=== PATIENT | male | born 1960 | race Caucasian/White ===

== ENCOUNTER → 2021-02-28 | Day surgery (SDC) | payer BC ==
[~2021-02-28] VITALS: Ht 185.4 cm; Wt 105.5 kg
[~2021-02-28] MED LIST: CELEXA 10 MG TA10 M1 PO; CELEXA 10 MG TA10 MG; CINNAMON500 MG PO; COCONUT OIL1000 MG PO; FAMOTIDINE20 MG PO; FISH OIL 1,0001 EAC9 PO; HYDROCODON-ACE1 EAC7 PO; KRILL OIL500 MG PO; LEXAPRO 10 MG T10 M2 PO; METOPROLOL SUCC50 MG PO; SINGULAIR 10 MG10 M1 PO; TURMERIC500 M2 PO; VITAMIN D350 MC3 PO; ZINC50 M2 PO
[2021-02-28 11:15] VITALS: BP 127/77
[2021-02-28 15:12] VITALS: BP 127/77
--- NOTE | 2021-03-03 07:31 | EKG ---
[place] [address] [facility] [place] [address] ELECTROCARDIOGRAM REPORT Name: NISHANTLALO Rashida Room #: REG [facility]#: [id number] Admission: 02/28/21 Attend Phys: John Sharp MD Discharge: Date of : 58 Report #: [id number] [facility] Test Date: 2021-02-28 Test Time: 11:46:58 Pat Name: LALO DILLARD Department: Room: Gender: M Professional Nurse: JAQUI : 1960 Requested By: Kamla Porras Order Number: [id number] MD: Dung Duncan Measurements Intervals [place] Rate: 66 P: 13 [place]: 193 QRS: -17 QRSD: 104 T: 20 QT: 452 QTc: 474 Interpretive Statements Sinus rhythm Borderline left axis deviation Compared to ECG 12/30/2011 17:55:03 Left ventricular hypertrophy no longer present T-wave abnormality no longer present Possible ischemia no longer present Electronically Signed On 03-03-2021 7:31:37 GASTROENTEROLOGY PHYSICIAN by Dung Duncan [email or web address] <ELECTRONICALLY SIGNED> By: Dung Duncan MD, [facility] 03/03/21 0731 [id number] [id number] Dung Duncan MD, FACC /EPI
--- NOTE | 2021-03-05 08:19 | O ---
[facility] [place] [address] OPERATIVE REPORT Name: LALO DILLARD Room #: REG [facility]#: [id number] Admission: 02/28/21 Attend Phys: John Sharp MD Discharge: Date of : 58 Report #: [id number] THIS REPORT FOR: cc: Jeremy Matthews MD, Steven E. MD Franey, Thomas A. MD ~ cc: Jeremy Matthews MD DATE OF SERVICE: 02/28/[address] Jeremy Matthews. PREOPERATIVE DIAGNOSIS: Right inguinal hernia. POSTOPERATIVE DIAGNOSIS: Right inguinal hernia. PROCEDURE: Right inguinal hernia repair with Prolene hernia system mesh. SURGEON: John Sharp MD ANESTHESIA: Local IV sedation. DESCRIPTION OF PROCEDURE: The patient was brought to the operating room and placed on the operating table in the supine position. Sequential compression devices were in place for DVT prophylaxis. There was no indication for preoperative antibiotics. The patient underwent IV sedation and the right inguinal area was then prepped and draped in a sterile fashion. Skin and subcutaneous tissue were then infiltrated with 0.5% Marcaine, 1% Xylocaine with epinephrine. Right inguinal skin incision was then performed using #10 scalpel blade. Hemostasis was obtained using electrocautery as well as clamps and 2-0 chromic ties. Dissection was carried down through the subcutaneous tissue, the external oblique fascia, which was then incised with a knife, opened with the Metzenbaum scissors. The ilioinguinal nerve was identified, dissected free, injected with a local mixture and preserved. Cord was then dissected free, elevated and held in place with Hamilton drain. Cremasteric muscle fibers were then split in the direction of the fibers using clamp and electrocautery. There was no evidence of any indirect inguinal hernia sac. The floor was then examined. There was a moderate to large direct inguinal hernia. The direct inguinal hernia sac was then dissected free, incised just above the level of the floor and reduced back through the floor into the preperitoneal space. That preperitoneal space was then developed using blunt dissection with a Ray-Jeffery. After creating the space, an extended Prolene hernia system mesh was then inserted through the floor and the underlay patch was then deployed in the preperitoneal space. The floor was then tightened around the connector using a running 2-0 Prolene 2-layer Shouldice repair. The overlay patch was then deployed into the inguinal canal and secured at the pubic tubercle with the same [facility] [address] [place] [address] OPERATIVE REPORT Name: LALO DILLARD Room #: REG [facility].#: [id number] Admission: 02/28/21 Attend Phys: John Sharp MD Discharge: Date of : 58 Report #: [id number] running 2-0 Prolene suture. The mesh was then secured superiorly and at the connector using simple interrupted 2-0 Vicryl sutures. The mesh was split and wrapped around the cord and secured to the inguinal ligament with simple interrupted 2-0 Vicryl suture. The cord and ilioinguinal nerve were then returned to the canal intact. The external oblique fascia was then closed using a running 2-0 Vicryl suture. Fortino's fascia was then reapproximated using 3 simple interrupted 2-0 chromic sutures and the skin then closed with a running 4-0 subcuticular Vicryl stitch. The wound was then dressed with Mastisol, 1/2-inch Steri-Strips cut in half, Telfa, 4 x 4 gauze, sponge, and tape. The patient was then awakened from the IV sedation and taken to the recovery room awake, alert, and in good condition. Estimated blood loss was approximately 10 mL, and the patient tolerated the procedure well. All sponge, lap and instrument counts were correct x 2. <ELECTRONICALLY SIGNED> By: John Sharp MD 03/05/21 0819 [id number] John Sharp MD /nt
== END | disposition home or self-care (01) ==
LOC: OR 09:46
PROVIDERS: ATTEND Surgery
DX: K40.90 Unilateral inguinal hernia, without obstruction or gangrene, not specified as recurrent (principal); I10 Essential (primary) hypertension; K21.9 Gastro-esophageal reflux disease without esophagitis; F32.9 Major depressive disorder, single episode, unspecified; Z98.890 Other specified postprocedural states; Z79.899 Other long term (current) drug therapy; Z91.041 Radiographic dye allergy status; Z88.2 Allergy status to sulfonamides
CPT/HCPCS: 50010; 50101; 50386; 50403; 56524; 56525; 56526; 56528; 58646; 62110; 62850; 70005

== ENCOUNTER → 2021-04-15 | Outpatient (CLI) | payer OTHER | LOC: CAT 11:25 | PROVIDERS: ATTEND Internal Medicine Cardiovascular Disease | DX: Z13.6 Encounter for screening for cardiovascular disorders (principal); I25.10 Atherosclerotic heart disease of native coronary artery without angina pectoris ==